=== PATIENT | female | born 1965 ===

== ENCOUNTER 2023-09-28 06:30 | Emergency (ER) | payer OTHER, SELFPAY ==
[2023-09-28 06:38] VITALS: BP 142/71; PULSE 80; RESP 17; TEMP 36.6; O2SAT 97; BMI 31.9
--- NOTE | 2023-09-28 07:53 | ED_ITS ---
HPI - General Adult General Chief complaint: General Medical Stated complaint: headache, med refill Time Seen by Provider: 09/28/23 07:46 Source: patient Mode of arrival: ambulatory Limitations: no limitations History of Present Illness HPI narrative: 58-year-old female came in for evaluation of headache for 3 days. Patient with past history of hypothyroidism that she takes Synthroid for at and due to lack of health insurance patient is unable to take her medication for the past few weeks, patient usually if she does not take her thyroid medication get headache, today's headache is similar to her previous headache when she do not take the Synthroid, declined neck stiffness, photophobia, fever, chills, weakness, or numbness. Related Data Previous Rx's Medication Instructions Recorded levothyroxine 50 mcg capsule 50 mcg PO DAILY #60 caps 09/28/23 Allergies Allergy/AdvReac Type Severity Reaction Status Date / Time No Known Allergies Allergy Verified 09/28/23 06:36 Review of Systems 2 Review of Systems: All other systems are reviewed and are negative Constitutional: Reports as per HPI and Reports no additional constitutional complaints Eyes: Reports as per HPI and Reports no additional eye complaints Reports system reviewed and no additional complaints, except as documented Cardiovascular: Reports as per HPI and Reports no additional cardiovascular complaints Respiratory: Reports as per HPI and Reports no additional respiratory complaints Gastrointestinal: Reports as per HPI and Reports no additional gastrointestinal complaints Genitourinary: Reports no additional female genitourinary complaints Musculoskeletal: Reports no additional musculoskeletal complaints Skin/Breast: Reports system reviewed and no additional complaints, except as docu Psychiatric: Reports no additional psychiatric complaints Endocrine: Reports no additional endocrine complaints Hematologic/Lymphatic: Reports no additional hematologic/lymphatic complaints Allergic/Immunologic: Reports no additional allergic/immunologic complaints Reports system reviewed and no additional complaints, except as documented and Reports Abnormal speech present [facility] Social History Social History Advance Directives: No Advance Directives Information Provided: Yes Physical Exam ED Vital Signs: Vital Signs - 24 hr 09/28/23 06:38 Temperature 97.8 F Pulse Rate 80 Respiratory Rate 17 Blood Pressure 142/71 H Pulse Oximetry 97 Oxygen Delivery Method Room Air BMI result Body Mass Index 31.9 Vital signs have been reviewed and appear to be correct. Blood pressure elevated. Heart rate normal. Respiratory rate normal. Temperature normal. Oxygen saturation normal. Appearance: Alert. Oriented X3. No acute distress. Head: Normal external exam. Normocephalic. Atraumatic. No Manuel signs noted. No raccoon eyes noted Eyes: PERRLA. EOMI. Conjunctiva and sclera normal. Eyelids normal. No photophobia. ENT: TM's Normal. Pharynx normal. Uvula midline. Moist mucous membranes. No trismus noted. No drooling noted. No muffled voice noted. Neck: Normal inspection. Neck supple. FROM. No adenopathy. Thyroid Normal. No meningeal signs. No neck mass noted. CVS: Normal heart rate and rhythm. Heart sound normal. No murmurs noted. Pulses normal throughout. Respiratory: No respiratory distress. Painless inspiration. Breath sounds normal. No wheezes/rales/rhonchi noted. Chest nontender. No accessory muscle usage noted or decreased air movement noted. Abdomen: Soft and nontender. Bowel sounds normal in all 4 quadrants. No distention noted. No organomegaly noted. No visible injury noted. Back: No CVA tenderness. Full range of motion noted. Skin: Skin warm and dry. Normal skin color. Normal skin turgor. No rashes/lesions/lacerations noted. Extremities: No lower extremity edema. Extremities exhibit normal range of motion. Extremities nontender. Neuro: Oriented X 3. Cranial nerve exam: II-XII are grossly intact No motor deficit. No sensory deficit. Reflexes normal. Course Course Course Narrative: Hypothyroidism not taking her thyroid hormone replacement for few months which typically cause headache due to lack of health insurance patient has no PCP and no refill for her medication. Patient was instructed to start look for a new PCP at the meantime will restart the patient on levothyroxine 50 mcg. Medications Administered Discontinued Medications Generic Name Dose Route Start Last Admin Trade Name Freq PRN Reason Stop Dose Admin Levothyroxine Sodium 50 mcg 09/28/23 07:56 09/28/23 09:02 Levothyroxine Sodium 50 Mcg Tablet PO 09/28/23 07:57 50 mcg ONCE ONE Administration Medical Decision Making Differential Diagnosis Differential Diagnoses: The differential diagnosis associated with the presentation includes (Hypothyroidism, electrolyte derangement, severe anemia, sinusitis, migraine, tension headache.) Admission/Observation Consideration of admission/observation: Escalation of care including admission/observation considered Lab Data MDM Lab Attestation statement: I reviewed the patient's lab results. 09/28/23 08:19 09/28/23 08:19 Labs: Lab Results 09/28/23 Range/Units 08:19 WBC 7.0 (4.8-10.8) X10*3/uL RBC 5.12 (4.20-5.50) X10*6/uL Hgb 12.8 (12.0-16.0) g/dl Hct 40.8 (37.0-47.0) % MCV 79.7 L (80.0-98.0) fL MCH 25.0 L (27.0-33.0) pg MCHC 31.4 (31.0-35.0) g/dl RDW 14.8 (11.0-16.0) % Plt Count 295 (160-400) X10*3/uL MPV 10.6 (9.4-12.3) fL Immature Gran % (Auto) 0.3 (0.0-0.4) % Neut % (Auto) 55.1 (45-73) % Lymph % (Auto) 33.9 (20-40) % Hendricks % (Auto) 4.8 (2-11) % Eos % (Auto) 5.0 H (0-4) % Baso % (Auto) 0.9 (0-2) % Lymph # (Auto) 2.4 (1.2-4.9) X10*3/uL Hendricks # (Auto) 0.3 (0.1-1.2) X10*3/uL Eos # (Auto) 0.4 (0.0-0.4) X10*3/uL Baso # (Auto) 0.1 (0.0-0.2) X10*3/uL Abs Immat Gran (auto) 0.02 (0.00-0.03) X10*3/uL Absolute Neuts (auto) 3.9 (2.0-8.3) x10*3/uL Absolute Nucleated RBC 0.000 (0.0-0.012) X10*3/uL Nucleated RBC % (auto) 0.0 (0.0-0.2) /100WBC Sodium 141 (135-145) mmol/L Potassium 3.8 (3.3-5.1) mmol/L Chloride 108 (96-108) mmol/L Carbon Dioxide 24 (22-29) mmol/L Anion Gap 13 (12-20) BUN 17 H (9-16) mg/dL Creatinine 0.74 (0.5-1.4) mg/dL Estim Creat Clear Calc 90.2 Estimated GFR > 60 Random Glucose 93 (60-115) mg/dL Calcium 9.8 (8.4-10.2) mg/dL TSH 9.14 H (0.32-4.0) uIU/mL Chronic Conditions Patient?s care impacted by: Other (Hypothyroidism) Discharge Plan Discharge Clinical Impression: Headache, tension-type, Hypothyroidism Patient Disposition: Home, Self-Care Instructions: Hypothyroidism (ED) Prescriptions: New levothyroxine 50 mcg capsule 50 mcg PO DAILY Qty: 60 1RF Referrals: [facility] [Physician] -
[2023-09-28 08:23] LABS: MANUAL DIFF FLAG NO
[2023-09-28 08:27] LABS: Basophils Absolute Auto 0.1 X10*3/uL (0.0-0.2); Basophils Percent Auto 0.9 % (0-2); Eosinophils Absolute Auto 0.4 X10*3/uL (0.0-0.4); Hematocrit 40.8 % (37.0-47.0); Hemoglobin 12.8 g/dl (12.0-16.0); Imm Gran Abs Auto 0.02 X10*3/uL (0.00-0.03); Imm Gran Pct Auto 0.3 % (0.0-0.4); Lymphocytes Absolute Auto 2.4 X10*3/uL (1.2-4.9); Lymphocytes Percent Auto 33.9 % (20-40); Mean Corpuscular HGB Conc 31.4 g/dl (31.0-35.0); Mean Corpuscular Volume 79.7 fL (80.0-98.0); Mean Platelet Volume 10.6 fL (9.4-12.3); Monocytes Absolute Auto 0.3 X10*3/uL (0.1-1.2); Monocytes Percent Auto 4.8 % (2-11); Neutrophils Absolute Auto 3.9 x10*3/uL (2.0-8.3); Neutrophils Percent Auto 55.1 % (45-73); Platelet Count 295 X10*3/uL (160-400); Red Blood Count 5.12 X10*6/uL (4.20-5.50); Red Cell Distribution Width 14.8 % (11.0-16.0)
[2023-09-28 08:43] LABS: Anion Gap 13 (12-20); Blood Urea Nitrogen 17 mg/dL (9-16); Calcium 9.8 mg/dL (8.4-10.2); Carbon Dioxide 24 mmol/L (22-29); Chloride 108 mmol/L (96-108); Creatinine Clr Calc Pharmacy 90.2; Estimated Glomerular Filt Rate > 60; Glucose Random 93 mg/dL (60-115); Potassium 3.8 mmol/L (3.3-5.1); Sodium 141 mmol/L (135-145)
[2023-09-28 09:00] LABS: TSH reflex Free T4 9.14 uIU/mL (0.32-4.0)
[2023-09-28] MEDS: Levothyroxine Sodium 50 MCG TABLET PO (09:02)
== END 2023-09-28 10:05 | disposition home or self-care (01) ==
PROVIDERS: Emergency Provider Emergency Medicine
DX: G44.209 Tension-type headache, unspecified, not intractable (principal); E03.9 Hypothyroidism, unspecified; Z76.0 Encounter for issue of repeat prescription; Z79.899 Other long term (current) drug therapy
CPT/HCPCS: 36415; 80048; 84439; 84443; 85025; 99282; 99283

== ENCOUNTER 2024-02-16 03:21 | Emergency (ER) | payer OTHER, SELFPAY ==
[2024-02-16 03:27] VITALS: BP 129/79; PULSE 83; RESP 20; TEMP 36.8; O2SAT 96; BMI 29.7
--- NOTE | 2024-02-16 03:55 | ED.GENADULT ---
HPI - General Adult General Chief complaint: General Medical Stated complaint: Headache Time Seen by Provider: 02/16/24 03:54 Source: patient Mode of arrival: ambulatory Limitations: no limitations History of Present Illness ED Provider: Dr. Amadou Rivera HPI narrative: 58-year-old female with a history of hypothyroidism who states that she is run out of her levothyroxine for 1 week and now feels anxious, , headache, unable to sleep, feels like her heart is beating fast and has tremors. She states she has had similar symptoms in the past when she was run out of her thyroid medication. The patient states that she had to change insurance and can not get an appointment with her new PCP until June of 2024. She is concerned about being off her thyroid medications for this. Of time therefore she came to the emergency department for evaluation. She denied fever, chills, abdominal pain, lower extremity swelling, lightheadedness or dizziness. Related Data Previous Rx's ?Medication ?Instructions ?Recorded levothyroxine 50 mcg capsule 50 mcg PO DAILY #60 caps 09/28/23 levothyroxine 50 mcg capsule 50 mcg PO DAILY 90 days #90 caps 02/16/24 Allergies Allergy/AdvReac Type Severity Reaction Status Date / Time No Known Allergies Allergy Verified 02/16/24 03:32 [facility] Social History Social History Advance Directives: No Advance Directives Information Provided: Yes Physical Exam ED Vital Signs: Vital Signs - 24 hr 02/16/24 03:27 Temperature 98.3 F Pulse Rate 83 Respiratory Rate 20 Blood Pressure 129/79 Pulse Oximetry 96 Oxygen Delivery Method Room Air BMI result Body Mass Index 29.7 Vital signs were normal Exam: General: Awake, alert in no distress Head: Normocephalic, atraumatic EENT: PERRL, Lids normal, sclera normal, conjunctiva normal, nose normal , ears normal, throat without erythema or exudates Neck: Supple, no adenopathy Lung: breath sounds symmetric, no wheezing, rales or rhonchi Chest: symmetric movement, nontender Heart: regular rate and rhythm, normal S1, S2 no murmurs or rubs Abdomen: soft, non-tender, nondistended, normal bowel sounds Back: no vertebral tenderness, no CVAT Extremities: no deformities, moves all extremities symmetrically Neuro: Awake, alert, oriented, normal speech, cranial nerves intact, moves all extremities symmetrically Psych: Pleasant, cooperative Medications Administered Discontinued Medications Generic Name Dose Route Start Last Admin Trade Name Del PRN Reason Stop Dose Admin Levothyroxine Sodium 50 mcg 02/16/24 04:07 02/16/24 04:17 Levothyroxine Sodium 50 Mcg Tablet PO 02/16/24 04:08 50 mcg ONCE ONE Administration Medical Decision Making Medical Decision Making MDM Narrative: 58-year-old female with a history of hypothyroidism who states that she is run out of her levothyroxine for 1 week and now feels anxious, , headache, unable to sleep, feels like her heart is beating fast and has tremors. She states she has had similar symptoms in the past when she was run out of her thyroid medication. Vital signs were normal, physical examination was unremarkable. Differential diagnosis: ?Includes but is not limited to anxiety, hypothyroidism Patient was initially treated with the following: Levothyroxine 50 mcg orally Course: 04:23 Patient has had similar symptoms in the past when she was ran out of her levothyroxine. Patient's vital signs were normal physical examination was unremarkable. Patient was given levothyroxine 50 mcg orally and given a prescription for levothyroxine 50 mg once a day with a 90 day supply and 1 refill. This should get her through to her new PCP visit. Patient was given printed and verbal instructions and discharged home. Prescription Management I considered prescription management with: Other (Thyroid medications) Chronic Conditions Patient?s care impacted by: Other (Hypothyroidism) Discharge Plan Discharge Clinical Impression: Hypothyroidism Patient Disposition: Home, Self-Care Instructions: Hypothyroidism (ED) Additional Instructions: Take levothyroxine 50 mcg capsules, 1 pill in the mornings. You were given a dose this morning, take your next dose, 02/17/2024 in the morning. I gave you a prescription with a 90 day supply with 1 refill so that this can get you through until your doctor's appointment. Continue taking your other medications as prescribed by your providers. Follow-up with your doctor in 2 days. Please return to the emergency department if your symptoms get worse or if you develop any symptoms that are concerning to you. Prescriptions: New levothyroxine 50 mcg capsule 50 mcg PO DAILY 90 Days Qty: 90 1RF No Action levothyroxine 50 mcg capsule 50 mcg PO DAILY Qty: 60 1RF Interventions: ED Discharge Assessment Last Done: 02/16/24 04:25 Discharge Date/Time: 02/16/24 04:29 Print Language: Chinese
--- NOTE | 2024-02-16 04:06 | PC.NURSE ---
Pt is a 58 y/o female presents from home via walk-in and reports needing a prescription renewed for hypothyroid. Pt is in-between PCPs and the earliest appt she could obtain is in June. Pt presented to the ED tonang wilcoxse she couldn't sleep, has tingling in her extremities, and has a headache. Pt denies taking anything OTC for the headache or the discomfort prior to coming to the ED. Denies any other pain, discmfort, or concerns. Pt reports she ran out of her thyroid medicine approximately one week ago and then these symptoms started, similar to the past episode. Denies chest pain, abd pain, difficulty breathing, and any nausea/vomiting. Denies any trauma, recent travel, or recent illness/fever. Food and fluid intak is WNL.
[2024-02-16] MEDS: Levothyroxine Sodium 50 MCG TABLET PO (04:17)
[2024-02-16 04:25] VITALS: BP 132/76; PULSE 80; RESP 16; TEMP 36.9; O2SAT 98
== END 2024-02-16 04:29 | disposition home or self-care (01) ==
LOC: HO.ED 04:20
PROVIDERS: Emergency Provider Emergency Medicine Emergency Medical Services
DX: E03.9 Hypothyroidism, unspecified (principal)
CPT/HCPCS: 99282; 99283

== ENCOUNTER 2024-08-07 19:52 | Emergency (ER) | payer OTHER, SELFPAY ==
--- NOTE | ~2024-08-07 | US_ITS ---
CLINICAL HISTORY: RUQ pain Limited abdominal ultrasound Comparison: None Findings: The common bile duct is normal in diameter, measuring 0.4 cm. No cholelithiasis. There are gallbladder polyps. The largest polyp measures 0.8 x 0.6 x 0.8 cm. No wall thickening or pericholecystic fluid. Negative sonographic Coffman sign. Impression: Negative for acute cholecystitis. Gallbladder polyps measure up to 0.8 cm. Yearly ultrasound follow up is recommended. This document has been electronically signed by: Modesta Choudhary MD on 08/07/2024 21:53:13
[2024-08-07 19:57] VITALS: BP 140/84; PULSE 95; RESP 20; TEMP 36.3; O2SAT 96; BMI 29.1
--- NOTE | 2024-08-07 20:02 | ED_ITS ---
HPI - General Adult General Chief complaint: Abdominal Pain Stated complaint: Upper Abd Pain and Back Pain Time Seen by Provider: 08/07/24 22:13 Source: patient Mode of arrival: ambulatory Limitations: no limitations History of Present Illness ED Provider: DR. Murcia HPI narrative: 59-year-old female came in for evaluation of upper abdominal pain, upper abdominal bloating after food, burping pain is usually after food, no nausea, no vomiting, no shortness of breath, no fever, no chills, no history of intra- abdominal surgery, last bowel movement was this morning and was normal normally passing flatus with excessive burping, no vomiting blood, no blood in the bowel movement. No recent travel, no exposure to a sick contacts. Related Data Previous Rx's ?Medication ?Instructions ?Recorded levothyroxine 50 mcg capsule 50 mcg PO DAILY #60 caps 09/28/23 levothyroxine 50 mcg capsule 50 mcg PO DAILY 90 days #90 caps 02/16/24 levothyroxine 50 mcg capsule 50 mcg PO DAILY #90 caps 02/17/24 (Tirosint) nitrofurantoin 100 mg PO Q12H 7 days #14 caps 08/07/24 monohydrate/macrocrystals 100 mg capsule (Macrobid) omeprazole 40 mg capsule,delayed 40 mg PO DAILY #20 caps 08/07/24 release Allergies Allergy/AdvReac Type Severity Reaction Status Date / Time No Known Allergies Allergy Verified 08/07/24 20:00 Review of Systems 2 Review of Systems: All other systems are reviewed and are negative Constitutional: Reports as per HPI and Reports no additional constitutional complaints Eyes: Reports as per HPI and Reports no additional eye complaints Reports system reviewed and no additional complaints, except as documented Cardiovascular: Reports as per HPI and Reports no additional cardiovascular complaints Respiratory: Reports as per HPI and Reports no additional respiratory complaints Gastrointestinal: Reports as per HPI and Reports no additional gastrointestinal complaints Genitourinary: Reports no additional female genitourinary complaints Musculoskeletal: Reports no additional musculoskeletal complaints Skin/Breast: Reports system reviewed and no additional complaints, except as docu Psychiatric: Reports no additional psychiatric complaints Endocrine: Reports no additional endocrine complaints Hematologic/Lymphatic: Reports no additional hematologic/lymphatic complaints Allergic/Immunologic: Reports no additional allergic/immunologic complaints Reports system reviewed and no additional complaints, except as documented and Reports Abnormal speech present Physical Exam ED Vital Signs: Vital Signs - 24 hr 08/07/24 19:57 08/07/24 22:08 Temperature 97.3 F 98.2 F Pulse Rate 95 86 Respiratory Rate 20 18 Blood Pressure 140/84 H 127/78 Pulse Oximetry 96 98 Oxygen Delivery Method Room Air Room Air BMI result Body Mass Index 29.1 Vital signs have been reviewed and appear to be correct. Blood pressure elevated. Heart rate normal. Respiratory rate normal. Temperature normal. Oxygen saturation normal. Appearance: Alert. Oriented X3. No acute distress. Head: Normal external exam. Normocephalic. Atraumatic. No Manuel signs noted. No raccoon eyes noted Eyes: PERRLA. EOMI. Conjunctiva and sclera normal. Eyelids normal. ENT: TM's Normal. Pharynx normal. Uvula midline. Moist mucous membranes. No trismus noted. No drooling noted. No muffled voice noted. Neck: Normal inspection. Neck supple. FROM. No adenopathy. Thyroid Normal. No meningeal signs. No neck mass noted. CVS: Normal heart rate and rhythm. Heart sound normal. No murmurs noted. Pulses normal throughout. Respiratory: No respiratory distress. Painless inspiration. Breath sounds normal. No wheezes/rales/rhonchi noted. Chest nontender. No accessory muscle usage noted or decreased air movement noted. Abdomen: Soft and nontender. Bowel sounds normal in all 4 quadrants. No distention noted. No organomegaly noted. No visible injury noted. Back: No CVA tenderness. Full range of motion noted. Skin: Skin warm and dry. Normal skin color. Normal skin turgor. No rashes/lesions/lacerations noted. Extremities: No lower extremity edema. Extremities exhibit normal range of motion. Extremities nontender. Neuro: Oriented X 3. Cranial nerve exam: II-XII are grossly intact No motor deficit. No sensory deficit. Reflexes normal. Course Course Course Narrative: RME, this is a rapid medical exam performed by Gustavo Cespedes please refer to primary provider for complete H&P- 59-year-old female presents for evaluation of upper abdominal pain with nausea after eating fatty foods. Plan for labs, ultrasound of the right upper quadrant Reevaluation(s) Reevaluation #1: ACS is not likely diagnosis, negative troponin/EKG. Ultrasound showed gallbladder polyps recommended to repeat ultrasound in 1 year patient will be following with GI. Symptoms and physical exam is more consistent with gastritis will start the patient on Prilosec and follow-up with GI. UTI will start the patient on Macrobid. Time: 22:28 Medical Decision Making Differential Diagnosis Differential Diagnoses: The differential diagnosis associated with the presentation includes (Gastroenteritis, gastritis, cholecystitis, cholelithiasis, pancreatitis, colitis, electrolyte derangement, ACS, severe anemia, UTI, pyelonephritis.) Admission/Observation Consideration of admission/observation: Escalation of care including admission/observation considered Lab Data MDM Lab Attestation statement: I reviewed the patient's lab results. 08/07/24 20:08 08/07/24 20:08 Labs: Lab Results 08/07/24 08/07/24 Range/Units 20:08 22:15 WBC 7.6 (4.8-10.8) X10*3/uL RBC 5.05 (4.20-5.50) X10*6/uL Hgb 13.2 (12.0-16.0) g/dl Hct 39.9 (37.0-47.0) % MCV 79.0 L (80.0-98.0) fL MCH 26.1 L (27.0-33.0) pg MCHC 33.1 (31.0-35.0) g/dl RDW 14.6 (11.0-16.0) % Plt Count 313 (160-400) X10*3/uL MPV 10.3 (9.4-12.3) fL Immature Gran % (Auto) 0.3 (0.0-0.4) % Neut % (Auto) 65.4 (45-73) % Lymph % (Auto) 24.8 (20-40) % Glynn % (Auto) 5.0 (2-11) % Eos % (Auto) 3.8 (0-4) % Baso % (Auto) 0.7 (0-2) % Lymph # (Auto) 1.9 (1.2-4.9) X10*3/uL Glynn # (Auto) 0.4 (0.1-1.2) X10*3/uL Eos # (Auto) 0.3 (0.0-0.4) X10*3/uL Baso # (Auto) 0.1 (0.0-0.2) X10*3/uL Abs Immat Gran (auto) 0.02 (0.00-0.03) X10*3/uL Absolute Neuts (auto) 5.0 (2.0-8.3) x10*3/uL Absolute Nucleated RBC 0.000 (0.0-0.012) X10*3/uL Nucleated RBC % (auto) 0.0 (0.0-0.2) /100WBC Sodium 143 (135-145) mmol/L Potassium 3.6 (3.3-5.1) mmol/L Chloride 114 H (96-108) mmol/L Carbon Dioxide 21 L (22-29) mmol/L Anion Gap 12 (12-20) BUN 15 (9-16) mg/dL Creatinine 0.71 (0.5-1.4) mg/dL Estim Creat Clear Calc 88.8 Estimated GFR > 60 Random Glucose 96 (60-115) mg/dL Calcium 9.6 (8.4-10.2) mg/dL Total Bilirubin 0.2 (0.0-1.0) mg/dL AST 19 (5-31) U/L ALT 17 (0-31) U/L Alkaline Phosphatase 56 (39-117) U/L Total Protein 8.2 H (6.5-8.0) g/dL Albumin 4.4 (3.5-5.0) g/dL Lipase 78 (8-78) U/L Urine Color Yellow Urine Appearance Clear Urine pH 5.0 (5.0-9.0) Ur Specific [place] 1.025 (1.005-1.025) Urine Protein Negative (Neg-Trace) mg/dL Urine Glucose (UA) Negative (Negative) mg/dL Urine Ketones 15 (Negative) mg/dL Urine Blood Negative (Negative) Urine Nitrite Negative (Negative) Ur Leukocyte Esterase Moderate (2+) H (Negative) Urine RBC 0-2 (0-2) /HPF Urine WBC 21-50 H (0-5) /HPF Ur Squamous Epith Cells 0-2 (0-2) /HPF Urine Bacteria None Seen (None Seen) Hyaline Casts 3-5 (0-2) /LPF Independent Interpretation I performed an independent interpretation of an: Ultrasound (Gallbladder:Gallbladder polyps measure up to 0.8 cm. Yearly ultrasound follow up is recommended.) Radiology Impression Discussion of test interpretation with radiology: I have reviewed the radiologist's reading. Discharge Plan Discharge Clinical Impression: Gastritis, UTI (urinary tract infection) Patient Disposition: Home, Self-Care Prescriptions: New nitrofurantoin monohyd/m-cryst [Macrobid] 100 mg capsule 100 mg PO Q12H 7 Days Qty: 14 0RF Rx Instructions: must administer with a meal/food omeprazole 40 mg capsule,delayed release(DR/EC) 40 mg PO DAILY Qty: 20 0RF No Action levothyroxine 50 mcg capsule 50 mcg PO DAILY Qty: 60 1RF levothyroxine 50 mcg capsule 50 mcg PO DAILY 90 Days Qty: 90 1RF levothyroxine [Tirosint] 50 mcg capsule 50 mcg PO DAILY Qty: 90 1RF Referrals: Sadaf Pimentel MD [Physician] - Print Language: Citizen Of [place]
[2024-08-07 20:18] LABS: Basophils Absolute Auto 0.1 X10*3/uL (0.0-0.2); Basophils Percent Auto 0.7 % (0-2); Eosinophils Absolute Auto 0.3 X10*3/uL (0.0-0.4); Eosinophils Percent Auto 3.8 % (0-4); Hematocrit 39.9 % (37.0-47.0); Hemoglobin 13.2 g/dl (12.0-16.0); Imm Gran Abs Auto 0.02 X10*3/uL (0.00-0.03); Imm Gran Pct Auto 0.3 % (0.0-0.4); Lymphocytes Absolute Auto 1.9 X10*3/uL (1.2-4.9); Lymphocytes Percent Auto 24.8 % (20-40); MANUAL DIFF FLAG NO; Mean Corpuscular HGB Conc 33.1 g/dl (31.0-35.0); Mean Corpuscular Hemoglobin 26.1 pg (27.0-33.0); Mean Platelet Volume 10.3 fL (9.4-12.3); Monocytes Absolute Auto 0.4 X10*3/uL (0.1-1.2); Neutrophils Percent Auto 65.4 % (45-73); Platelet Count 313 X10*3/uL (160-400); Red Blood Count 5.05 X10*6/uL (4.20-5.50); Red Cell Distribution Width 14.6 % (11.0-16.0); White Blood Count 7.6 X10*3/uL (4.8-10.8)
[2024-08-07 20:35] LABS: Alanine Aminotransferase 17 U/L (0-31); Albumin Level 4.4 g/dL (3.5-5.0); Alkaline Phosphatase 56 U/L (39-117); Anion Gap 12 (12-20); Aspartate Amino Transferase 19 U/L (5-31); Bilirubin Total 0.2 mg/dL (0.0-1.0); Blood Urea Nitrogen 15 mg/dL (9-16); Calcium 9.6 mg/dL (8.4-10.2); Carbon Dioxide 21 mmol/L (22-29); Chloride 114 mmol/L (96-108); Creatinine Clr Calc Pharmacy 88.8; Estimated Glomerular Filt Rate > 60; Glucose Random 96 mg/dL (60-115); Lipase 78 U/L (8-78); Potassium 3.6 mmol/L (3.3-5.1); Sodium 143 mmol/L (135-145); Total Protein 8.2 g/dL (6.5-8.0)
[2024-08-07 22:08] VITALS: BP 127/78; PULSE 86; RESP 18; TEMP 36.8; O2SAT 98
--- NOTE | 2024-08-07 22:09 | MHC.EDTECH ---
Patient brought from the waiting room,pt changed into hospital attire,vitals taken,patient ambulated to the bathroom with a steady gait,urine sample obtained and sent to lab,call merissa in reach
[2024-08-07 22:22] LABS: Appearance Urine Clear; Color Urine Yellow; Glucose Urine UA Negative (Negative); Leukocyte Esterase Urine Moderate (2+) (Negative); Nitrite Urine Negative (Negative); Specific Gravity - Urine 1.025 (1.005-1.025); UMIC TRIGGER UACC YES; Urine Blood Negative (Negative); Urine Ketones 15 mg/dL (Negative); Urine Protein Negative (Neg-Trace)
[2024-08-07 22:24] LABS: Bacteria Urine None Seen (None Seen); RBC Urine 0-2 /HPF (0-2); Squamous Epithelial Cell Urine 0-2 /HPF (0-2); UACC Culture Trigger YES; WBC Urine 21-50 /HPF (0-5)
--- NOTE | 2024-08-07 22:25 | ECG_ITS ---
Test Reason : ABD PAIN Blood Pressure : / mmHG Vent. Rate : 091 BPM Atrial Rate : 091 BPM P-R Int : 156 ms QRS Dur : 092 ms QT Int : 366 ms P-R-T Axes : -03 043 017 degrees QTc Int : 450 ms Normal sinus rhythm Normal ECG When compared with ECG of 15-APR-2004 23:16, No significant change was found Referred By: Catherine Murcia Electronically Signed By:FARAZ EDWARDS MD
[2024-08-07 23:06] LABS: Troponin-I High Sensitivity < 2.7 ng/L (<3.5-17.0)
[2024-08-07] MEDS: Omeprazole 40 MG CAPSULE.DR PO (23:16)
[2024-08-07] MEDS: Nitrofurantoin Monohyd/M-Cryst 100 MG CAPSULE PO (23:16)
[2024-08-07 23:39] VITALS: BP 125/69; PULSE 85; RESP 16; TEMP 36.6; O2SAT 96
== END 2024-08-07 23:41 | disposition home or self-care (01) ==
PROVIDERS: Physician Assistant; Emergency Provider Emergency Medicine
DX: K29.70 Gastritis, unspecified, without bleeding (principal); N39.0 Urinary tract infection, site not specified; R10.11 Right upper quadrant pain
CPT/HCPCS: 36415; 76705; 80053; 81001; 83690; 84484; 85025; 87086; 93005; 99284

== ENCOUNTER → 2024-08-07 20:02 | Outpatient (BNV) | payer OTHER, SELFPAY | PROVIDERS: Visit Provider Radiology Diagnostic Radiology | DX: R10.11 Right upper quadrant pain (principal); K82.4 Cholesterolosis of gallbladder | CPT/HCPCS: 76705 ==

== ENCOUNTER → 2024-08-07 22:25 | Outpatient (BNV) | payer OTHER, SELFPAY | PROVIDERS: Emergency Provider Emergency Medicine; Visit Provider Internal Medicine Cardiovascular Disease | DX: R10.9 Unspecified abdominal pain (principal); M54.9 Dorsalgia, unspecified | CPT/HCPCS: 93010 ==